=== PATIENT | male | born 1945 | race Caucasian/White ===

== ENCOUNTER 2022-10-08 21:14 | Inpatient (IN) | payer MEDICARE ==
[~2022-10-08] VITALS: Ht 182.9 cm; Wt 72.6 kg
--- NOTE | 2022-10-08 21:30 | NUR ---
TO ER BED 3. BIBPA. FROM [facility] FOR ABNORMAL LABS - POTASSIUM - 5.6, BUN 116. PT IS ALERT AND ORIENTED. RR EVEN AND NON LABORED. NOT AMBULATORY, LOWER EXTREMITY AMPUTATION. CONNECTED TO POX AND HEART MONITOR.
--- NOTE | 2022-10-08 22:33 | NUR ---
IV LINE ESTABLISHED, RWRIST 20G
--- NOTE | 2022-10-08 22:34 | NUR ---
LAB AT BEDSIDE
--- NOTE | 2022-10-08 22:42 | NUR ---
COVID SWAB COLLECTED
[2022-10-08 22:53] LABS: BASOPHILS # (AUTO) 0.1 K/uL (0.0-0.2); BASOPHILS % (AUTO) 0.5 % (0.0-2.0); EOSINOPHILS % (AUTO) 3.9 % (0.0-6.0); HEMATOCRIT 51 % (39-51); LYMPHOCYTES # (AUTO) 0.9 K/uL (0.8-4.8); LYMPHOCYTES % (AUTO) 9.1 % (20.0-44.0); MEAN CORPUSCULAR HGB CONC 33 g/dl (31.0-36.0); MEAN CORPUSCULAR VOLUME 87 fL (80-96); MONOCYTES # (AUTO) 0.6 K/uL (0.1-1.30); MONOCYTES % (AUTO) 6.1 % (2.0-12.0); NEUTROPHILS # (AUTO) 7.8 K/uL (1.8-8.9); NEUTROPHILS % (AUTO) 80.4 % (43.0-81.0); PLATELET COUNT (AUTO) 152 K/uL (150-450); RED BLOOD CELL COUNT(AUTO) 5.85 MIL/uL (4.5-6.0); WHITE BLOOD COUNT (AUTO) 9.8 K/uL (4.3-11.0)
[2022-10-08 23:00] LABS: BILIRUBIN,URINE NEGATIVE (NEGATIVE); COLOR,URINE YELLOW (YELLOW); LEUKOCYTE ESTERASE ,URINE NEGATIVE (NEGATIVE); NITRITE, URINE NEGATIVE (NEGATIVE); PROTEIN,URINE NEGATIVE (NEGATIVE); UGLUCOSE 3+ mg/dL (NEGATIVE); UROBILINOGEN,URINE 0.2 EU/dL (0.2)
[2022-10-08 23:11] LABS: CALCIUM, SERUM 9.6 mg/dL (8.5-10.1); CARBON DIOXIDE 24 mmol/L (21-32); CHLORIDE 105 mmol/L (98-107); CREATININE 3.5 mg/dL (0.6-1.3); GLUCOSE 190 mg/dL (74-106); POTASSIUM 4.8 mmol/L (3.5-5.1); SODIUM SERUM 141 mmol/L (136-145)
[2022-10-08 23:26] LABS: ALANINE AMINOTRANSFERASE 22 U/L (12-78); ALBUMIN 3.3 g/dL (3.4-5.0); ALKALINE PHOSPHATASE 76 U/L (46-116); ASPARTATE AMINOTRANSFERASE 21 U/L (15-37); BILIRUBIN,DIRECT 0.4 mg/dL (0.0-0.2); BILIRUBIN,TOTAL 0.9 mg/dL (0.2-1.0); TOTAL PROTEIN, SERUM 7.4 g/dL (6.4-8.2); UREA NITROGEN, BLOOD 112 mg/dL (7-18)
[2022-10-08 23:29] LABS: BACTERIA,URINE Rare /HPF (None Seen); RBC,URINE 0-2 /HPF (0-2); SQUAMOUS EPITHELIAL CELL,UR Rare /HPF (None Seen); WBC,URINE 0-2 /HPF (0-3)
--- NOTE | 2022-10-09 00:10 | NUR ---
[facility]SA SWAB COLLECTED AND SENT TO LAB. PATIENT'S BELONGINGS LIST DONE.
[2022-10-09] MEDS ORDERED: MAGNESIUM HYDROXIDE 30 ML UDC PO PRN ×2 (00:30→09:00)
[2022-10-09] MEDS ORDERED: ONDANSETRON HCL/PF 4 MG/2 ML VIAL IVP PRN (00:30)
[2022-10-09] MEDS ORDERED: ACETAMINOPHEN 325 MG TABLET PO PRN (00:30)
[2022-10-09] MEDS ORDERED: Z GUARD REMEDY 4 OZ OINT TP PRN (00:30)
[2022-10-09] MEDS ORDERED: IV NS 0.9% 1,000 ML IV PRN (00:30)
[2022-10-09] MEDS ORDERED: ZOLPIDEM TARTRATE 5 MG TABLET PO PRN (00:30)
[2022-10-09] MEDS ORDERED: MAG HYDROX/AL HYDROX/SIMETH 30 ML UDC PO PRN (00:30)
--- NOTE | 2022-10-09 01:44 | NUR ---
REPORT GIVEN TO ALICIA SOTO FOR SHAYY
[2022-10-09 02:16] VITALS: BP 100/59
[2022-10-09 03:00] VITALS: BP 100/59
--- NOTE | 2022-10-09 03:32 | NUR ---
CIRCUIT BREAKER MECHANICDIRECTOR CLIENT NOTES: RECEIVED PATIENT FROM ER VIA GURNEY AWAKE, NO COMPLAIN OF PAIN AND DISCOMFORT TRANSFER TO BED, PATIENT AMBULATE WITH ASSISTANCE,ON BED REST, SKIN ASSESSMENT DONE AND DOCUMENTED, INVENTORIES DONE SIGNED AND DOCUMENTED, PATIENT ON TELE MONITOR- SR-68 NO SYMPTOMS WAS OBSERVED, IV LINE AT RIGHT RISK #20 WITH ONGOING 0.9NSS@100ML/HR INFUSING WELL, PATIENT WAS ORIENTED TO ROOM REMND TO USE CALL LIGHTS WHEN NEEDED ASSISTANCE, KEPT CLEAN AND DRY, PLACE BED IN LOW POSITION , CALL LIGHTS WITHIN REACH, WILL CONTINUE TO MONITOR.
[2022-10-09 04:00] VITALS: BP 99/53
--- NOTE | 2022-10-09 06:11 | NUR ---
RN CLOSING NOTES: PATIENT SLEEP IN BED COMFORTABLY, AROUSABLE TO VERBAL STIMULI, BED IN LOW POSITION CALL LIGHTA WITHIN REACH, NO COMPLAIN OF PAIN AND DISCOMFORT AT THIS TIME, ON ROOM AIR SATURATING WELL, PATIENT KEPT CLEAN AND DRY ALL NEEDS MET ENDORSE TO INCOMING SHIFT.
--- NOTE | 2022-10-09 07:32 | NUR ---
RN OPENING NOTE PATIENT AWAKE IN BED RESTING, A/O X 4. NO S/S OF PAIN NOTED AT THIS TIME. ON ROOM AIR, NO SHORTNESS OF BREATH, NO DISTRESS NOTED. IV ACCESS R WRIST #20G, INTACT, PATENT AND FLUSHING WELL. PATIENT ON EXTERNAL MANAGER NET WITH CURRENT READING OF SR AND HR OF 60, NO CARDIAC DISTRESS NOTED. FALL AND SAFETY MEASURES IN PLACE, BED ALARM ON, BED IN LOW AND LOCK POSITION, CALL LIGHT AND TABLE WITHIN EASY REACH, SIDE RAILS UP X2. WILL CONTINUE TO MONITOR.
[2022-10-09 08:00] VITALS: BP 116/58
[2022-10-09] MEDS ORDERED: LISI40TA13 PO (08:08)
[2022-10-09] MEDS ORDERED: EMPA25TA PO (08:08)
[2022-10-09] MEDS ORDERED: ATEN50TA PO (08:08)
[2022-10-09] MEDS ORDERED: TAMS-12 PO (08:08)
[2022-10-09] MEDS ORDERED: HYDR50TA4 PO (08:08)
[2022-10-09] MEDS ORDERED: ATOR10TA PO (08:08)
[2022-10-09] MEDS ORDERED: ACET325T53 PO (08:08)
[2022-10-09] MEDS ORDERED: FLUO10TA PO (08:08)
[2022-10-09] MEDS ORDERED: MAGN400O6 PO (08:08)
[2022-10-09] MEDS ORDERED: METF-442 PO (08:08)
[2022-10-09] MEDS ORDERED: BISA10SU11 RC (08:08)
[2022-10-09] MEDS ORDERED: POLY17PO4 PO (08:08)
[2022-10-09] MEDS ORDERED: MULT-447 PO (08:08)
[2022-10-09] MEDS ORDERED: CALC117719 PO (08:08)
[2022-10-09] MEDS ORDERED: ASPI-1169 PO (08:08)
[2022-10-09] MEDS ORDERED: NA P133E RC (08:08)
[2022-10-09] MEDS ORDERED: ACET-907 PO (08:08)
[2022-10-09] MEDS ORDERED: SENN-261 PO (08:08)
[2022-10-09] MEDS ORDERED: PANT40TA2 PO (08:08)
[2022-10-09] MEDS ORDERED: BISACODYL SUPP (10 MG) 10 MG/SUPP.RECT SUPP.RECT RC PRN (09:00)
[2022-10-09] MEDS: BLOOD SUGAR DIAGNOSTIC 1 EACH STRIP IN SCH ×4 (09:00→21:55)
[2022-10-09] MEDS ORDERED: DEXTROSE 50%-WATER 50 ML DISP.SYRIN IV PRN (09:00)
[2022-10-09] MEDS ORDERED: NA PHOS,M-B/NA PHOS,DI-BA 1 EA ENEMA RC PRN (09:00)
[2022-10-09] MEDS: POLYETHYLENE GLYCOL 3350 17 GM POWD.PACK PO SCH (09:00)
[2022-10-09] MEDS: IV 1/2NS 1000 ML 1,000 ML IV SCH ×2 (09:20→18:09)
[2022-10-09] MEDS: ASPIRIN 81 MG TAB.CHEW PO SCH (09:21)
[2022-10-09] MEDS: PANTOPRAZOLE 40 MG TABLET.DR PO SCH (09:21)
[2022-10-09] MEDS: AMLODIPINE BESYLATE 10 MG TABLET PO SCH (09:22)
[2022-10-09] MEDS: SENNOSIDES 8.6 MG TABLET PO SCH ×2 (09:22→17:10)
[2022-10-09] MEDS: ATENOLOL 50 MG TABLET PO SCH (09:34)
[2022-10-09] MEDS: EMPAGLIFLOZIN 25 MG TABLET PO SCH (09:35)
[2022-10-09] MEDS: INSULIN REGULAR, HUMAN 100 UNIT/ML 3 ML VIAL SQ PRN ×3 (12:28→22:24)
[2022-10-09 16:00] VITALS: BP 102/64
--- NOTE | 2022-10-09 18:43 | NUR ---
RN CLOSING NOTE PATIENT AWAKE IN BED RESTING, A/O X 4. NO S/S OF PAIN NOTED AT THIS TIME. ON ROOM AIR, NO SHORTNESS OF BREATH, NO DISTRESS NOTED. IV ACCESSL HAND #18G, R WRIST #20G, INTACT, PATENT AND FLUSHING WELL, RUNNING 1/2 NS @ 100ML/HR. PATIENT ON EXTERNAL DIRECTOR EXECUTIVE COMMUNICATIONS WITH CURRENT READING OF SB AND HR OF 53, NO CARDIAC DISTRESS NOTED. SCHEDULE MEDICATIONS ADMINISTERED. PATIENT WAS TURNED AND REPOSITIONED PER PROTOCOL. FALL AND SAFETY MEASURES IN PLACE, BED ALARM ON, BED IN LOW AND LOCK POSITION, CALL LIGHT AND TABLE WITHIN EASY REACH, SIDE RAILS UP X2. ALL NEEDS ATTENDED AND ANTICIPATED. WILL ENDORSE TO PRINTING MACHINE OPERATOR TAPE RULES NURSE.
[2022-10-09 18:55] LABS: BILIRUBIN,URINE NEGATIVE (NEGATIVE); COLOR,URINE YELLOW (YELLOW); LEUKOCYTE ESTERASE ,URINE NEGATIVE (NEGATIVE); NITRITE, URINE NEGATIVE (NEGATIVE); PH,URINE 5.5 (5.0-8.0); PROTEIN,URINE NEGATIVE (NEGATIVE); UGLUCOSE 3+ mg/dL (NEGATIVE); UROBILINOGEN,URINE 0.2 EU/dL (0.2)
--- NOTE | 2022-10-09 19:00 | NUR ---
RN OPENING NOTE PT IS AWAKE, A&O X 4. ABLE TO MAKE NEEDS KNOWN. ORIENTED TO STAFF & UNIT. PT IS IN ROOM AIR, BREATHING EVEN AND UNLABORED @ THIS TIME. PT W/ IV ACCESS PRESENT ON LEFT HAND #18G, RIGHT WRIST 320G RUNNING IN 1/2 NS 2 100 MLS/HR, REMAIN PATENT, INTACT AND FLUSHES WELL. SKIN IS WARM & DRY. SAFETY MEASURES IS MAINTAINED. BED PLACED AT ITS LOWEST POSITION, SIDERAILS UP X 2, BEDSIDE TABLE AND CALL LIGHT IS EASY TO REACH/ WILL CONTINUE TO MONITOR PT ACCORDINGLY.
[2022-10-09 19:02] LABS: CREATININE, URINE 104.3 MG/DL (30.0-125.0)
[2022-10-09 19:18] LABS: BACTERIA,URINE None seen /HPF (None Seen); RBC,URINE 0-2 /HPF (0-2); SQUAMOUS EPITHELIAL CELL,UR 0-2 /HPF (None Seen); WBC,URINE 0-2 /HPF (0-3)
[2022-10-09 20:00] VITALS: BP 94/51
[2022-10-09] MEDS: ATORVASTATIN 10 MG TABLET PO SCH (21:17)
[2022-10-09] MEDS: TAMSULOSIN 0.4 MG CAP.SR.24H PO SCH (21:17)
[2022-10-10] VITALS: BP 111/63
[2022-10-10] MEDS: IV 1/2NS 1000 ML 1,000 ML IV SCH ×2 (04:51→15:16)
[2022-10-10 05:50] LABS: BASOPHILS % (AUTO) 0.4 % (0.0-2.0); EOSINOPHILS % (AUTO) 10.1 % (0.0-6.0); HEMATOCRIT 44 % (39-51); HEMOGLOBIN 14.7 g/dL (13.5-17.5); LYMPHOCYTES # (AUTO) 0.9 K/uL (0.8-4.8); LYMPHOCYTES % (AUTO) 11.9 % (20.0-44.0); MEAN CORPUSCULAR HGB CONC 34 g/dl (31.0-36.0); MEAN CORPUSCULAR VOLUME 86 fL (80-96); MONOCYTES # (AUTO) 0.5 K/uL (0.1-1.30); MONOCYTES % (AUTO) 6.4 % (2.0-12.0); NEUTROPHILS # (AUTO) 5.3 K/uL (1.8-8.9); NEUTROPHILS % (AUTO) 71.2 % (43.0-81.0); PLATELET COUNT (AUTO) 95 K/uL (150-450); RED BLOOD CELL COUNT(AUTO) 5.11 MIL/uL (4.5-6.0); WHITE BLOOD COUNT (AUTO) 7.4 K/uL (4.3-11.0)
[2022-10-10 06:07] LABS: ALANINE AMINOTRANSFERASE 17 U/L (12-78); ALBUMIN 2.8 g/dL (3.4-5.0); ALKALINE PHOSPHATASE 68 U/L (46-116); ASPARTATE AMINOTRANSFERASE 16 U/L (15-37); CALCIUM, SERUM 8.6 mg/dL (8.5-10.1); CARBON DIOXIDE 23 mmol/L (21-32); CHLORIDE 104 mmol/L (98-107); CREATININE 2.8 mg/dL (0.6-1.3); GLUCOSE 116 mg/dL (74-106); MAGNESIUM 2.3 mg/dL (1.8-2.4); PHOSPHORUS 4.3 mg/dL (2.5-4.9); POTASSIUM 4.1 mmol/L (3.5-5.1); SODIUM SERUM 137 mmol/L (136-145); TOTAL PROTEIN, SERUM 6.2 g/dL (6.4-8.2)
[2022-10-10 06:12] LABS: UREA NITROGEN, BLOOD 96 mg/dL (7-18)
--- NOTE | 2022-10-10 06:39 | NUR ---
RN CLOSING NOTE PT IS AWAKE, A/O X 4 IN ROOM AIR, RESPONSIVE AND FOLLOWS VERBAL COMMAND. NO S/S OF RESPIRATORY DISTRESS NOTED. ON TELE MONITOR SINUS PVV HR 58. IV SITE ON LEFT HAND #18g, RIGHT WRIST #20G RUNNING 1/2 NS 2 100 MLS/HR. ROUTINE MEDICATION PROVIDED. SAFETY MEASURES MAINTAINED WITH BED IN LOWEST AND LOCKED POSITION. BED ALARM ON, CALL LIGHT AND TABLE WITHIN REACH. SIDE RAILS UP X2. WILL ENDORSE TO THE NEXT SHIFT.
[2022-10-10 07:00] VITALS: BP 104/53
[2022-10-10] MEDS: BLOOD SUGAR DIAGNOSTIC 1 EACH STRIP IN SCH ×4 (07:03→22:29)
[2022-10-10] MEDS: INSULIN REGULAR, HUMAN 100 UNIT/ML 3 ML VIAL SQ PRN ×4 (07:04→22:34)
[2022-10-10] MEDS: ATENOLOL 50 MG TABLET PO SCH (07:30)
--- NOTE | 2022-10-10 07:45 | NUR ---
CLINICAL ACCOUNT LIAISON RN OPENING NOTE RECEIVED PT ASLEEP BUT EASILY ROUSED. A/O X 4, ABLE TO VERBALIZED NEEDS. ON ROOM AIR, NO S S/S OF SOB AND ACUTE DISTRESS NOTED AT THIS TIME. ON TELE MONITOR READING SINUS RHYTM WITH BBB, HR- 67. IV ACCES AT R WRIST # 20 RUNNING 1/2 NS 2 100 MLS/HR; L HAND #20, SL, INTACT AND PATENT. SAFETY MEASURES MAINTAINED WITH BED IN LOWEST AND LOCKED POSITION. BED ALARM ON, CALL LIGHT. URINAL AND TABLE WITHIN REACH. SIDE RAILS UP X2; WILL CONT WITH PLAN OF CARE DURING SHIFT.
[2022-10-10] MEDS: AMLODIPINE BESYLATE 10 MG TABLET PO SCH (08:29)
[2022-10-10] MEDS: ASPIRIN 81 MG TAB.CHEW PO SCH (08:31)
[2022-10-10] MEDS: MULTIVIT W/MINERALS 1 TAB TABLET PO SCH (08:31)
[2022-10-10] MEDS: Fluoxetine 10 mg capsule PO SCH (08:31)
[2022-10-10] MEDS: PANTOPRAZOLE 40 MG TABLET.DR PO SCH (08:32)
[2022-10-10] MEDS: SENNOSIDES 8.6 MG TABLET PO SCH ×2 (08:32→16:11)
[2022-10-10] MEDS: EMPAGLIFLOZIN 25 MG TABLET PO SCH (08:34)
[2022-10-10 08:53] LABS: BAND % (MANUAL) 1 % (0.0-5.0); EOSINOPHILS % (MANUAL) 7 % (0-4); LYMPHOCYTES % (MANUAL) 8 % (16-48); MONOCYTES % (MANUAL) 4 % (0-11.0); NEUTROPHILS % (MANUAL) 80 (42-76)
[2022-10-10] MEDS: POLYETHYLENE GLYCOL 3350 17 GM POWD.PACK PO SCH (09:00)
[2022-10-10 12:00] VITALS: BP 104/52
[2022-10-10 16:00] VITALS: BP 110/58
--- NOTE | 2022-10-10 18:56 | NUR ---
RN CLOSING NOTES: PT ASLEEP BUT EASILY ROUSED. A/O X 4, WITH PERIODS OF FORGETFULNESS, ABLE TO VERBALIZE NEEDS. ON ROOM AIR, NO S S/S OF SOB AND ACUTE DISTRESS NOTED AT THIS TIME. ON TELE MONITOR READING SINUS RHYTM WITH BBB, HR- 60. IV ACCES AT R WRIST # 20 RUNNING 1/2 NS 2 100 MLS/HR; L HAND #20, SL, INTACT AND PATENT. URINE OUTPUT = 980CC URINAL DURING SHIFT. KEPT PT CLEAN, DRY AND COMFORTABLE, ALL NEEDS MET. SAFETY MEASURES MAINTAINED, CALL LIGHT, URINAL AND TABLE WITHIN REACH. SIDE RAILS UP X2; WILL ENDORSE TO PM SHIFT
--- NOTE | 2022-10-10 19:00 | NUR ---
RN OPENING NOTES PT IS AWAKE. A/O X 4, ABLE TO MAKE NEEDS KNOWN. ORIENTED TO STAFF AND UNIT. PT ON ROOM AIR, TOLERATING WELL, BREATHING EVEN AND UNLABORED @ THIS TIME. PT IV ACCESS IS 2 RIGHT WRIST #20 RUNNING 1/2 NS @100 MLS/HR, LEFT HAND #20 SALINE LOCK, INTACT, PATENT AND FLUSHES WELL, NO S/S OF INFILTRATION @ SITE NOTED. EXTERNAL FACTORY MAINTENANCE TECHNICIAN IN PLACE W/ CURRENT READING SR 60 W/ BBB. SKIN IS WARM AND DRY. SAFETY MEASURES INITIATED. BED PLACED IN LOWEST AND LOCK POSITION, SIDERAILS UP X 2, BESIDE TABLE AND CALL LIGHT WITHIN REACH, BED ALARM IS ON. TO CONTINUE TO MONITOR PT. ACCORDINGLY.
[2022-10-10 20:00] VITALS: BP 101/53
[2022-10-10] MEDS: ATORVASTATIN 10 MG TABLET PO SCH (22:35)
[2022-10-10] MEDS: TAMSULOSIN 0.4 MG CAP.SR.24H PO SCH (22:35)
[2022-10-11] VITALS: BP 108/61
[2022-10-11] MEDS: IV 1/2NS 1000 ML 1,000 ML IV SCH ×2 (03:23→13:30)
--- NOTE | 2022-10-11 03:40 | NUR ---
IV 1/2 NS HANG LATE DUE TO PREVIOUS IV 1/2 NS STILL RUNNING.
[2022-10-11 06:42] LABS: ALANINE AMINOTRANSFERASE 18 U/L (12-78); ALBUMIN 2.7 g/dL (3.4-5.0); ALKALINE PHOSPHATASE 65 U/L (46-116); ASPARTATE AMINOTRANSFERASE 17 U/L (15-37); CALCIUM, SERUM 8.6 mg/dL (8.5-10.1); CARBON DIOXIDE 22 mmol/L (21-32); CHLORIDE 103 mmol/L (98-107); CREATININE 2.1 mg/dL (0.6-1.3); GLUCOSE 104 mg/dL (74-106); SODIUM SERUM 135 mmol/L (136-145); TOTAL PROTEIN, SERUM 6.2 g/dL (6.4-8.2); UREA NITROGEN, BLOOD 68 mg/dL (7-18)
[2022-10-11] MEDS: BLOOD SUGAR DIAGNOSTIC 1 EACH STRIP IN SCH ×4 (06:56→21:48)
[2022-10-11] MEDS: INSULIN REGULAR, HUMAN 100 UNIT/ML 3 ML VIAL SQ PRN ×4 (06:57→21:48)
--- NOTE | 2022-10-11 06:57 | NUR ---
INSULIN NOT ADMINISTERED DUE TO BS @ 96.
--- NOTE | 2022-10-11 06:58 | NUR ---
RN CLOSING NOTES PT IS AWAKE. A/O X 4, ABLE TO MAKE NEEDS KNOWN. PT ON ROOM AIR, TOLERATING WELL, BREATHING EVEN AND UNLABORED @ THIS TIME. PT IV ACCESS IS @ THE RIGHT WRIST #20 RUNNING 1/2 NS @100 MLS/HR, LEFT HAND #20 SALINE LOCK, INTACT, PATENT AND FLUSHES WELL, NO S/S OF INFILTRATION @ SITE NOTED. EXTERNAL RECORDS SECTION SUPERVISOR IN PLACE, CURRENT READING IS SINUS MARIA LUISA W/ BBB HR 52. PT HAS 2X DIAPER CHANGED, 1X BM. MEDICATIONS GIVEN ORDERED. SAFETY MEASURES INITIATED. BED PLACED IN LOWEST AND LOCK POSITION, SIDERAILS UP X 2, BESIDE TABLE AND CALL LIGHT WITHIN REACH, BED ALARM IS ON. WILL ENDORSE TO THE NEXT SHIFT FOR CONTINUITY OF CARE.
[2022-10-11 07:24] VITALS: BP 108/61
[2022-10-11] MEDS: ATENOLOL 50 MG TABLET PO SCH (07:30)
--- NOTE | 2022-10-11 07:46 | NUR ---
DUMP GROUNDS CHECKER OPENING NOTES: RECEIVED PT ASLEEP BUT EASILY ROUSED. A/O X 4, ABLE TO VERBALIZED NEEDS. ON ROOM AIR, NO S S/S OF SOB AND ACUTE DISTRESS NOTED AT THIS TIME. ON TELE MONITOR READING SINUS RHYTM WITH BBB, HR- 57. IV ACCES AT R WRIST # 20 RUNNING 1/2 NS 2 100 MLS/HR; L HAND #20, SL, INTACT AND PATENT. SAFETY MEASURES MAINTAINED WITH BED IN LOWEST AND LOCKED POSITION. BED ALARM ON, CALL LIGHT. URINAL AND TABLE WITHIN REACH. SIDE RAILS UP X2; WILL CONT WITH PLAN OF CARE DURING SHIFT.
[2022-10-11] MEDS: ASPIRIN 81 MG TAB.CHEW PO SCH (08:20)
[2022-10-11] MEDS: PANTOPRAZOLE 40 MG TABLET.DR PO SCH (08:21)
[2022-10-11] MEDS: MULTIVIT W/MINERALS 1 TAB TABLET PO SCH (08:21)
[2022-10-11] MEDS: Fluoxetine 10 mg capsule PO SCH (08:21)
[2022-10-11] MEDS: SENNOSIDES 8.6 MG TABLET PO SCH (08:21)
[2022-10-11] MEDS: EMPAGLIFLOZIN 25 MG TABLET PO SCH (08:23)
[2022-10-11] MEDS: POLYETHYLENE GLYCOL 3350 17 GM POWD.PACK PO SCH (08:43)
[2022-10-11 09:22] VITALS: BP 104/52
[2022-10-11 11:49] VITALS: BP 103/58
[2022-10-11 16:04] VITALS: BP 131/68
--- NOTE | 2022-10-11 18:53 | NUR ---
RN CLOSING NOTES: PT ASLEEP BUT EASILY ROUSED. A/O X 4, WITH PERIODS OF FORGETFULNESS, ABLE TO VERBALIZE NEEDS. ON ROOM AIR, NO S S/S OF SOB AND ACUTE DISTRESS NOTED AT THIS TIME. ON TELE MONITOR READING SINUS RHYTM WITH BBB, HR- 67. IV ACCES AT R WRIST # 20 RUNNING 1/2 NS 2 100 MLS/HR; L HAND #20, SL, INTACT AND PATENT. KEPT PT CLEAN, DRY AND COMFORTABLE, ALL NEEDS MET. SAFETY MEASURES MAINTAINED, CALL LIGHT, URINAL AND TABLE WITHIN REACH. SIDE RAILS UP X2; WILL ENDORSE TO PM SHIFT
--- NOTE | 2022-10-11 19:20 | NUR ---
noc rn opening note received patient in bed, a/ox4. forgetful. DPOA was at bed side. Per DPOA, patient eats better when he is sitting at the edge of the bed-- will endorse to next nurse as well. patient not exhibiting s/s of apparent distress in room air. denies any pain at this time. reading sr with bbb at this time on the tele monitor. call light within reach. IV 1/2 ns running @100mls/hr. safety in place. will continue with the plan of care for patient.
[2022-10-11 20:00] VITALS: BP 131/71
[2022-10-11] MEDS: ATORVASTATIN 10 MG TABLET PO SCH (21:39)
[2022-10-11] MEDS: TAMSULOSIN 0.4 MG CAP.SR.24H PO SCH (21:39)
--- NOTE | 2022-10-11 21:49 | NUR ---
noc rn note patient blood sugar 88 this evening. no coverage needed. offered some snacks but per patient "I am not hungry right now". Encouraged to call and ask for snacks in any case he feels like eating. patient acknowledged, call light within reach. will monitor.
[2022-10-12] VITALS (8 sets, daily range): BP systolic 107–139; BP diastolic 54–72
[2022-10-12] MEDS: IV 1/2NS 1000 ML 1,000 ML IV SCH ×3 (00:16→17:00)
--- NOTE | 2022-10-12 00:16 | NUR ---
noc rn note scheduled 09/06 ns hanged late at this time because half a bag was still running earlier.
[2022-10-12 06:01] LABS: ALANINE AMINOTRANSFERASE 21 U/L (12-78); ALBUMIN 2.8 g/dL (3.4-5.0); ALKALINE PHOSPHATASE 75 U/L (46-116); ASPARTATE AMINOTRANSFERASE 21 U/L (15-37); CALCIUM, SERUM 8.4 mg/dL (8.5-10.1); CARBON DIOXIDE 19 mmol/L (21-32); CHLORIDE 103 mmol/L (98-107); CREATININE 1.7 mg/dL (0.6-1.3); GLUCOSE 86 mg/dL (74-106); POTASSIUM 3.8 mmol/L (3.5-5.1); SODIUM SERUM 134 mmol/L (136-145); TOTAL PROTEIN, SERUM 6.4 g/dL (6.4-8.2); UREA NITROGEN, BLOOD 41 mg/dL (7-18)
[2022-10-12] MEDS: BLOOD SUGAR DIAGNOSTIC 1 EACH STRIP IN SCH ×4 (06:40→22:16)
[2022-10-12] MEDS: INSULIN REGULAR, HUMAN 100 UNIT/ML 3 ML VIAL SQ PRN ×2 (06:40→22:22)
--- NOTE | 2022-10-12 06:40 | NUR ---
NOC RN NOTE BLOOD SUGAR 75 THIS MORNING. PATIENT DOES NOT WANT SNACKS AND PER PATIENT "I'LL WAIT FOR BREAKFAST"
--- NOTE | 2022-10-12 06:55 | NUR ---
noc rn closing note patient in bed, a/ox4. no s/s of apparent distress. denies any pain at this time. lt. wrist #20g running 1/2 ns @100mls/hr. reading SB with BBB. all needs attended. all scheduled medication administered. safety in place. will endorse to morning shift rn for continuity of care.
[2022-10-12] MEDS: ATENOLOL 50 MG TABLET PO SCH (07:30)
--- NOTE | 2022-10-12 07:55 | NUR ---
DREDGE BOAT ENGINEER OPENING NOTE RECEIVED PATIENT AWAKE IN BED. A/OX4. ABLE TO MAKE NEEDS KNOWN. BREATHING EVEN AND NON-LABORED ON RA. NO S/S OF DISTRESS NOTED AT THIS TIME. NO C/O PAIN OR DISCOMFORT AT THIS TIME. IV ACCESS R WRIST #20G, INTACT AND PATENT RUNNING 1/2 NS @100ML/HR. R BKA NOTED. SAFETY MEASURES IN PLACE: BED LOCKED AND AT LOWEST POSITION, RAILS UP X2, CALL STEWARD WITHIN REACH. WILL CONTINUE TO MONITOR AND ASSIST.
[2022-10-12] MEDS: PANTOPRAZOLE 40 MG TABLET.DR PO SCH (08:39)
[2022-10-12] MEDS: ASPIRIN 81 MG TAB.CHEW PO SCH (08:39)
[2022-10-12] MEDS: POLYETHYLENE GLYCOL 3350 17 GM POWD.PACK PO SCH ×2 (08:39→08:46)
[2022-10-12] MEDS: Fluoxetine 10 mg capsule PO SCH (08:40)
[2022-10-12] MEDS: MULTIVIT W/MINERALS 1 TAB TABLET PO SCH (08:40)
[2022-10-12] MEDS: EMPAGLIFLOZIN 25 MG TABLET PO SCH (08:42)
[2022-10-12] MEDS ORDERED: PHENOL/SODIUM PHENOLATE 1 BOTTLE MM PRN (11:30)
[2022-10-12] MEDS: GUAIFENESIN/CODEINE 10 ML UDC PO PRN ×2 (13:08→21:04)
--- NOTE | 2022-10-12 13:10 | NUR ---
RN NOTE PT COMPLAINING OF HAVING SORE THROAT AND DIFFICULTY SWALLOWING, DR NOTIFIED, ORDER RECEIVED. ADMINISTERED ROBITUSSIN SYRUP. SWALLOW EVAL ORDERED. WILL CONTINUE TO MONITOR AND ASSIST.
--- NOTE | 2022-10-12 18:32 | NUR ---
REVENUE CYCLE MANAGER CLOSING NOTE PATIENT AWAKE IN BED, WATCHING TV. A/OX4. ABLE TO MAKE NEEDS KNOWN. BREATHING EVEN AND NON-LABORED ON RA. NO S/S OF DISTRESS NOTED AT THIS TIME. NO C/O PAIN OR DISCOMFORT AT THIS TIME. IV ACCESS R WRIST #20G, INTACT AND PATENT RUNNING 1/2 NS @100ML/HR. PT ON EXTERNAL COMMITTEE MEMBER READING MARIA LUISA WITH BBB AT 55 BPM. SCHEDULE MEDICATION ADMINISTERED. COVID 19 ANTIGEN TEST DONE. SAFETY MEASURES IN PLACE: BED LOCKED AND AT LOWEST POSITION, RAILS UP X2, CALL STEWARD WITHIN REACH. WILL ENDORSE TO NEXT SHIFT FOR SHAYY.
--- NOTE | 2022-10-12 19:15 | NUR ---
GIFT MANAGER OPENING NOTE RECEIVED PT AWAKE IN BED, WATCHING TV. A/OX4. ABLE TO MAKE NEEDS KNOWN. ON RA BREATHING EVEN AND NON-LABORED. NO S/S OF DISTRESS NOTED AT THIS TIME. NO C/O PAIN OR DISCOMFORT AT THIS TIME. REQUESTING MED FOR SORE THROAT. IV ACCESS R WRIST #20G, INTACT AND PATENT RUNNING 1/2 NS @100ML/HR. PT ON EXTERNAL DETAILER SCHOOL PHOTOGRAPHS READING MARIA LUISA WITH BBB AT 55 BPM. SAFETY MEASURES IN PLACE: BED LOCKED AND AT LOWEST POSITION, RAILS UP X2, CALL STEWARD WITHIN REACH. WILL CONTINUE TO MONITOR AND ASSIST.
[2022-10-12] MEDS: ATORVASTATIN 10 MG TABLET PO SCH (21:04)
[2022-10-12] MEDS: TAMSULOSIN 0.4 MG CAP.SR.24H PO SCH (21:04)
[2022-10-13 00:16] VITALS: BP 103/56
[2022-10-13] MEDS: IV 1/2NS 1000 ML 1,000 ML IV SCH ×2 (03:31→12:32)
[2022-10-13 04:04] VITALS: BP 139/70
[2022-10-13 06:06] LABS: ALANINE AMINOTRANSFERASE 17 U/L (12-78); ALBUMIN 2.5 g/dL (3.4-5.0); ALKALINE PHOSPHATASE 70 U/L (46-116); ASPARTATE AMINOTRANSFERASE 18 U/L (15-37); BILIRUBIN,TOTAL 0.8 mg/dL (0.2-1.0); CALCIUM, SERUM 8.2 mg/dL (8.5-10.1); CARBON DIOXIDE 22 mmol/L (21-32); CHLORIDE 102 mmol/L (98-107); CREATININE 1.5 mg/dL (0.6-1.3); GLUCOSE 91 mg/dL (74-106); POTASSIUM 3.6 mmol/L (3.5-5.1); SODIUM SERUM 134 mmol/L (136-145); UREA NITROGEN, BLOOD 23 mg/dL (7-18)
[2022-10-13] MEDS: BLOOD SUGAR DIAGNOSTIC 1 EACH STRIP IN SCH ×2 (07:01→12:32)
[2022-10-13] MEDS: INSULIN REGULAR, HUMAN 100 UNIT/ML 3 ML VIAL SQ PRN ×2 (07:01→12:43)
--- NOTE | 2022-10-13 07:15 | NUR ---
VISUAL ARTS TEACHER CLOSING NOTE PT RESTING IN BED. A/OX4 WITH PERIODS OF CONFUSION. ABLE TO MAKE NEEDS KNOWN. STABLE ON RA BREATHING EVEN AND NON-LABORED. NO S/S OF DISTRESS NOTED AT THIS TIME. NO C/O PAIN OR DISCOMFORT AT THIS TIME. IV ACCESS R WRIST #20G, INTACT AND PATENT RUNNING 1/2 NS @100ML/HR. PT ON EXTERNAL CROP ADJUSTER READING MARIA LUISA WITH BBB AT 58 BPM. ALL CARE PROVIDED AND MEDS TOLERATED WELL. SAFETY MEASURES MAINTAINED: BED LOCKED AND AT LOWEST POSITION, RAILS UP X2, CALL STEWARD WITHIN REACH. WILL ENDORSE TO DAY SHIFT NURSE.
[2022-10-13 08:00] VITALS: BP 119/80
[2022-10-13] MEDS ORDERED: AMLO-212 PO (08:04)
[2022-10-13] MEDS ORDERED: LISI40TA13 PO (08:04)
--- NOTE | 2022-10-13 08:19 | NUR ---
QUAL RESEARCH MANAGER OPENING NOTE RECEIVED PATIENT ASLEEP IN BED, ABLE TO BE AROUSED EASILY. A/OX4. ABLE TO MAKE NEEDS KNOWN. BREATHING EVEN AND NON-LABORED ON RA. NO S/S OF DISTRESS NOTED AT THIS TIME. NO C/O PAIN OR DISCOMFORT AT THIS TIME. TELE MONITOR SHOWING SB IN IN 50s bpm to sr with hr in 60S BPM WITH BBB. IV ACCESS R WRIST #20G, INTACT AND PATENT RUNNING 1/2 NS @100ML/HR. PATIENT HAS A RIGHT BKA. SAFETY MEASURES IN PLACE: BED LOCKED AND AT LOWEST POSITION, RAILS UP X2, CALL STEWARD WITHIN REACH. WILL CONTINUE TO MONITOR AND ASSIST PER MD POC.
[2022-10-13] MEDS: POLYETHYLENE GLYCOL 3350 17 GM POWD.PACK PO SCH ×2 (09:00→09:21)
[2022-10-13 09:20] VITALS: BP 119/80
[2022-10-13] MEDS: EMPAGLIFLOZIN 25 MG TABLET PO SCH (09:20)
[2022-10-13] MEDS: ASPIRIN 81 MG TAB.CHEW PO SCH (09:20)
[2022-10-13] MEDS: ATENOLOL 50 MG TABLET PO SCH (09:20)
[2022-10-13] MEDS: Fluoxetine 10 mg capsule PO SCH (09:21)
[2022-10-13] MEDS: GUAIFENESIN/CODEINE 10 ML UDC PO PRN (09:21)
[2022-10-13] MEDS: MULTIVIT W/MINERALS 1 TAB TABLET PO SCH (09:21)
[2022-10-13] MEDS: PANTOPRAZOLE 40 MG TABLET.DR PO SCH (10:30)
--- NOTE | 2022-10-13 12:33 | NUR ---
DIRECTOR OF IT OPERATIONSBIOSTATISTICS MANAGER NOTE Patient's PIV catheters removed fully intact without complications from both hands. Patient used teach back method of education to demonstrate understanding of discharge instructions. Patient signed his list of belongings/valuables as all in his possession and accounted for. Gave phone report to nurse Griffin at the [facility]. Reviewed patient's health status,VS, most recent accucheck BG reading and his need to get lunch and sliding scale insulin once he arrives at the SNF. Last BG check = 205mg/dL. Patient refused lunch. No insulin given at [facility]. Reviewed discharge medication reconciliation with nurse. Patient departed via gurney to ambulance bound for SNF at 12:20 PM.
== END 2022-10-13 13:00 | DRG 684 ==
LOC: ER 21:19 → TELE 10-09 01:15
PROVIDERS: ADMIT Internal Medicine; ATTEND Internal Medicine
DX: N17.0 Acute kidney failure with tubular necrosis (principal); E78.5 Hyperlipidemia, unspecified; Z20.822 Contact with and (suspected) exposure to COVID-19; Z87.442 Personal history of urinary calculi; N40.0 Benign prostatic hyperplasia without lower urinary tract symptoms; Z89.611 Acquired absence of right leg above knee; Z86.718 Personal history of other venous thrombosis and embolism; Z91.81 History of falling; Z86.19 Personal history of other infectious and parasitic diseases; Z79.82 Long term (current) use of aspirin; Z79.84 Long term (current) use of oral hypoglycemic drugs; F32.A Depression, unspecified; Z79.899 Other long term (current) drug therapy; I12.9 Hypertensive chronic kidney disease with stage 1 through stage 4 chronic kidney disease, or unspecified chronic kidney disease; E11.22 Type 2 diabetes mellitus with diabetic chronic kidney disease; N18.9 Chronic kidney disease, unspecified; E11.65 Type 2 diabetes mellitus with hyperglycemia
CPT/HCPCS: 36415; 71045-TC; 76770-TC; 80048-TC; 80053-TC; 80076-TC; 81001; 82570-TC; 82962-TC; 83735-TC; 84100-TC; 84300-TC; 85025-TC; 85730-TC; 87081-TC; 92526; 92611-TC; C9803; G0378; J1815; J3490; J7030